=== PATIENT | female | born 1995 | race Hispanic/Latino ===

== ENCOUNTER 2021-08-15 09:58 | Day surgery (SDC) | payer OTHER ==
[2021-08-11 15:15] VITALS: BMI 23.3
[2021-08-15] MEDS ORDERED: Lidocaine 1% MPF 2 ML VIAL ONE (11:04)
[2021-08-15] MEDS ORDERED: Fentanyl 100 MCG/2 ML VIAL ONE (12:30)
[2021-08-15] MEDS ORDERED: Rocuronium Bromide 10 MG/ML (10ML VIAL) ONE (12:30)
[2021-08-15] MEDS ORDERED: Lidocaine 1% PF 5 ML VIAL ONE (12:30)
[2021-08-15] MEDS ORDERED: PROPOFOL 20 ML ONE (12:30)
[2021-08-15] MEDS ORDERED: EPINEPHrine 1 MG/ML AMP ONE (12:44)
[2021-08-15] MEDS ORDERED: Methylene Blue 50 MG/10 ML AMPUL ONE (12:45)
[2021-08-15] MEDS ORDERED: ceFAZolin 2 GM/DEX 5% 100 ML BAG ONE (12:51)
[2021-08-15] MEDS ORDERED: Midazolam HCl 2 mg/2 ml Vial ONE (12:58)
[2021-08-15] MEDS ORDERED: diphenhydrAMINE 50 MG/ML VIAL ONE (13:15)
[2021-08-15] MEDS ORDERED: Dexamethasone 4 mg/ml Vial ONE (13:15)
[2021-08-15] MEDS ORDERED: Ondansetron PF 4 MG/2 ML Vial ONE (13:15)
[2021-08-15] MEDS ORDERED: Ketorolac Tromethamine 30 MG/ML VIAL ONE (13:49)
[2021-08-15] MEDS ORDERED: Glycopyrrolate 0.2 MG/ML 5 ML SYRINGE ONE (14:02)
[2021-08-15] MEDS ORDERED: Meperidine HCl/PF 25 MG/ML VIAL ONE (14:45)
[2021-08-15] MEDS ORDERED: Bupivacaine PF 0.5% 30 ML VIAL ONE (14:46)
== END 2021-08-15 16:30 | disposition home or self-care (01) ==
LOC: CSHSDC 09:58
PROVIDERS: ATTEND Obstetrics & Gynecology
PROC: 0WBH4ZZ Excision of Retroperitoneum, Percutaneous Endoscopic Approach (ICD-10-PCS; principal; 2021-08-15)
PROC: 0UJ88ZZ Inspection of Fallopian Tube, Via Natural or Artificial Opening Endoscopic (ICD-10-PCS; principal; 2021-08-15)
PROC: 0W9J4ZZ Drainage of Pelvic Cavity, Percutaneous Endoscopic Approach (ICD-10-PCS; principal; 2021-08-15)
PROC: 0UJD8ZZ Inspection of Uterus and Cervix, Via Natural or Artificial Opening Endoscopic (ICD-10-PCS; principal; 2021-08-15)
DX: T83.32XA Displacement of intrauterine contraceptive device, initial encounter (principal); N83.291 Other ovarian cyst, right side; N80.1 Endometriosis of ovary; Y83.1 Surgical operation with implant of artificial internal device as the cause of abnormal reaction of the patient, or of later complication, without mention of misadventure at the time of the procedure
CPT/HCPCS: J0171; J1100; J1200; J1885; J2175; J2250; J2405; J2704; J3010; Q9968; S0020

== ENCOUNTER 2021-12-14 13:16 | Outpatient (CLI) | payer OTHER | END 2021-12-14 13:17 | disposition home or self-care (01) | LOC: CSHULT 13:16 | PROVIDERS: ATTEND Family Medicine | DX: N63.25 Unspecified lump in the left breast, overlapping quadrants (principal) ==

== ENCOUNTER 2022-03-06 14:40 | Emergency (ER) | payer OTHER ==
[2022-03-06 15:27] LABS: #Monocytes 0.3 10x3/uL (0.0-1.1); #Neutrophils 3.8 10x3/uL (1.5-8.4); %Basophils 0.2 % (0.0-2.0); %Eosinophils 0.2 % (0.0-6.0); %Lymphocytes 27.3 % (18.0-47.0); %Monocytes 5.9 % (0.0-10.0); %Neutrophils 66.2 % (40.0-75.0); Hemoglobin 14.9 g/dL (12.0-15.5); Mean Corpuscular HGB CONC 34.3 g/dL (32.0-36.0); Mean Corpuscular Hemoglobin 33.2 pg (27.0-33.0); Mean Corpuscular Volume 96.7 fl (81.6-98.3); Mean Platelet Volume 9.8 fl (7.4-10.4); Platelet Count 250 10x3/uL (150-450); RBC Distribution Width 11.8 % (11.5-14.5); Red Blood Cell (RBC) Count 4.49 10x6/uL (3.90-5.03); White Blood Cell (WBC) Count 5.8 10x3/uL (3.5-10.5)
[2022-03-06 15:32] LABS: ALT (SGPT) 9 U/L (8-55); AST (SGOT) 16 U/L (5-34); Albumin 4.8 g/dL (3.5-5.0); Alkaline Phosphatase 67 U/L (40-110); Anion Gap 13 mmol/L (10-20); BUN (Urea Nitrogen) 10 mg/dL (7.0-18.7); Bilirubin, Total 0.6 mg/dL (0.2-1.2); Calc. Creatinine Clearance 0 mL/min (70-130); Calcium 9.4 mg/dL (7.8-10.44); Carbon Dioxide 27 mmol/L (22-29); Chloride 102 mmol/L (98-107); Globulin 2.7 g/dL (2.4-3.5); Glucose 88 mg/dL (70-105); Lipase 21 U/L (8-78); Potassium 3.8 mmol/L (3.5-5.1); Protein, Total 7.5 g/dL (6.0-8.3); Sodium 138 mmol/L (136-145)
[2022-03-06 15:38] LABS: Bilirubin Neg (Negative); Blood, Urine Negative (Negative); Clarity Clear (Clear); Glucose, Urine (Dipstick) Normal (Negative); Ketone, Urine Negative (Negative); Leukocyte Negative (Negative); Nitrite Negative (Negative); Protein, Urine (Dipstick) Negative (Neg-Trace); Urobilinogen Normal mg/dL (Less than 2)
[2022-03-06 15:43] LABS: Pregnancy Test - Urine (BHCG) Negative (Negative); Pregu Control Background? CLEAR/WHITE (CLR/WHITE); Pregu Control Bar Appear? YES (CONTROL BAR)
[2022-03-06] MEDS ORDERED: Mag-Al Plus 1200 MG/1200 MG/120 MG/30 ML UDCUP ONE ×2 (16:07)
[2022-03-06] MEDS ORDERED: Lidocaine Viscous Sol 2% 15 ml UD Cup ONE (16:07)
[2022-03-06] MEDS ORDERED: Ondansetron ODT 4 MG TAB ONE (16:14)
== END 2022-03-06 17:10 | disposition home or self-care (01) ==
LOC: CSHERS 14:40
DX: R10.13 Epigastric pain (principal); R11.0 Nausea
CPT/HCPCS: 80053; 81003; 81025; 83690; 85025; Q0162